=== PATIENT | male | born 1940 | race Caucasian/White ===

== ENCOUNTER 2021-03-07 13:33 | Emergency (ER) | payer MEDICARE, SELFPAY ==
--- NOTE | ~2021-03-07 | CT_ITS ---
EXAMINATION: CT ABDOMEN AND PELVIS WITHOUT CONTRAST CLINICAL INFORMATION: Left inguinal partially reducible hernia with history of repair COMPARISON: None TECHNIQUE: Multidetector volumetric imaging was performed from the superior aspect of the liver through the pubic symphysis. Sagittal and coronal reformatted images were obtained on the technologist's workstation. This CT examination was performed using dose optimization techniques as appropriate, variously including the following: *Automated exposure control *Adjustment of mA and/or kV according to patient size (this includes techniques or standardized protocols for targeted exams where dose is matched to indication/reason for exam; i.e. extremities or head) *Use of iterative reconstruction technique DLP: 485 mGy-cm FINDINGS: LUNG BASES: The visualized lung bases are unremarkable. LIVER, GALLBLADDER, AND BILIARY TREE: The liver is normal in size, shape, and attenuation. No focal hepatic lesion or biliary ductal dilatation is present. Cholelithiasis is noted. PANCREAS: Unremarkable. SPLEEN: Unremarkable. ADRENAL GLANDS: Unremarkable. KIDNEYS AND URETERS: The kidneys are normal in size, shape, and attenuation. No hydronephrosis, hydroureter, or calculi seen. BLADDER: Unremarkable. GASTROINTESTINAL TRACT: The small and large bowel are unremarkable. The appendix is unremarkable. No free fluid or free air is seen. ABDOMINAL WALL: There is a small fat-containing left inguinal hernia. Small amount of fluid is present near the upper aspect of the right inguinal canal, without significant hernia. No evidence of bowel herniation. LYMPH NODES: Normal. VASCULAR: Scattered atherosclerotic calcifications are present. PELVIC VISCERA: Unremarkable. OSSEOUS STRUCTURES: There are degenerative changes of the lower lumbar spine with disc space narrowing, endplate osteophyte formation, and facet arthropathy. Additional osteophytes seen elsewhere in the visualized spine. CT/CT abdomen pelvis wo con IMPRESSION: 1. Small fat-containing left inguinal hernia. 2. Small amount of fluid along the upper aspect of the right inguinal canal, without significant hernia. Correlation with surgical history is recommended, as this could reflect sequelae of prior hernia repair. 3. Cholelithiasis.
[2021-03-07 14:27] VITALS: BP 105/54; PULSE 61; RESP 18; TEMP 36.9; O2SAT 97; BMI 25.8
[2021-03-07 21:29] VITALS: BP 138/74; PULSE 69; RESP 14; TEMP 35.9; O2SAT 96
[2021-03-08 00:12] VITALS: BP 170/79; PULSE 65; RESP 16; O2SAT 99
--- NOTE | 2021-03-08 00:14 | PC.NURSE ---
at bed side for primary eval.
--- NOTE | 2021-03-08 00:20 | ED.MALEGU ---
HPI - Male Genitourinary General Chief complaint: Skin/Abscess/Foreign Body Stated complaint: HERNIA Time Seen by Provider: 03/08/21 00:13 Source: patient Mode of arrival: ambulatory Limitations: no limitations History of Present Illness HPI Narrative: Patient history of bilateral inguinal hernia status post repair including mesh placement last surgery was 15 years ago for last 2 months patient noticed recurrence of reducible left inguinal hernia , since last night swelling has increased in size but when he lays down it goes inside no nausea no vomiting no abdominal distention patient normal bowel movements Related Data Allergies Allergy/AdvReac Type Severity Reaction Status Date / Time No Known Allergies Allergy Verified 03/07/21 14:26 Review of Systems Review of Systems: Yes all other systems are reviewed and are negative FOR[facility]LY [facility] Past Medical History Medical History Pacemaker Social History Social History Advance Directives: No Advance Directives Information Provided: No Physical Exam Vital Signs: Vital Signs: Last Vital Signs Temp 96.7 F L 03/07/21 21:29 Pulse 65 03/08/21 00:12 Resp 16 03/08/21 00:12 BP 170/79 H 03/08/21 00:12 Pulse Ox 99 03/08/21 00:12 Body Mass Index 25.8 Appearance: Alert. Oriented X3. No acute distress. ENT: Pharynx normal. Oral Mucosa moist Neck: Normal inspection. Neck supple. CVS: Normal heart rate and rhythm. Pulses normal. Respiratory: No respiratory distress. Equal air entry bilateral, Abdomen: Soft and nontender. Bowel sounds are present, left inguinal hernia reducible nontender, no CVA tenderness Skin: Skin warm and dry. Normal skin color. Normal skin turgor. Extremities: No lower extremity edema. No calf tenderness Neuro: Oriented X 3. : Male genitals images: 1. Left direct reducible nontender inguinal hernia MDM - Male Genitourinary MDM Narrative Medical decision making narrative: Patient with small fat containing left inguinal hernia reducible nontender discharge patient home Discharge Plan Discharge Clinical Impression: Recurrent inguinal hernia of left side without obstruction or gangrene Patient Disposition: Home, Self-Care Instructions: Inguinal Hernia (ED) Additional Instructions: Avoid straining Report to the ER if increased pain or unable to reduce the hernia Follow-up with surgeon for further repair Referrals: Chad Miner MD [Physician] - 1 week
--- NOTE | 2021-03-08 00:23 | PC.NURSE ---
MD at bedside for primary eval. Plan for CT.
[2021-03-08 02:03] VITALS: BP 148/74; PULSE 60; RESP 16; O2SAT 98
== END 2021-03-08 02:05 | disposition home or self-care (01) ==
PROVIDERS: Emergency Provider Internal Medicine; PCP Internal Medicine
DX: K40.91 Unilateral inguinal hernia, without obstruction or gangrene, recurrent (principal); Z95.0 Presence of cardiac pacemaker
CPT/HCPCS: 74176; 99283; 99284